=== PATIENT | female | born 1980 | race Caucasian/White ===

== ENCOUNTER 2017-01-14 17:09 | Emergency (ER) | payer MEDICAID ==
--- NOTE | 2017-01-14 19:04 | ERNOTE ---
ENT HPI Date of Service: 01/14/17 Presenting Symptoms: dental pain Time Seen by Provider: 01/14/17 19:03 Source: patient - Immun/Allergies/Home Medications Immunizations: IMMUNIZATION HX Immunizations Up to Date Yes History of Influenza Vaccine Yes Hx Pneumococcal Vaccination No Allergies/Adverse Reactions: Allergies Allergy/AdvReac Type Severity Reaction Status Date / Time No Known Allergies Allergy Verified 01/14/17 17:38 Home Medications: HOME MEDICATIONS Acetaminophen with Codeine [Tylenol with Codeine #3 Tablet] 1 - 2 tab PO Q6H PRN #10 tab 01/14/17 [Last Taken Unknown] Albuterol Sulfate [Ventolin Hfa] 8 gm IH PRN PRN 01/14/17 [Last Taken Unknown] Cyclobenzaprine HCl 10 mg PO PRN PRN 01/14/17 [Last Taken Unknown] Penicillin V Potassium [Pen-Vee K] 500 mg PO QID #40 tab 01/14/17 [Last Taken Unknown] Venlafaxine HCl [Venlafaxine HCl ER] 150 mg PO DAILY 01/14/17 [Last Taken Unknown] - History of Present Illness Narrative: RIGHT JAW PAIN STARTING LST NIGHT AND THINKS SHE HAS A TOOTH ABSCESS. states she called for a dental appt. but can not be seen for 2weeks. Review of Systems - Review of Systems Constitutional: Present: See HPI ENT: Present: other - tooth ache with right lower jaw swelling no trauma Respiratory: Present: no symptoms reported Cardiology: Present: no symptoms reported Gastrointestinal/Abdominal: Present: no symptoms reported Genitourinary: Present: no symptoms reported Musculoskeletal: Present: other - hx of psoriatic arthritis All Other Systems: All systems neg except as marked - Patient's Past Medical History Patient History - Medical: No pertinent hx, Other - HX OF PSORIATIC ARTHRITIS. Patient History - Cardiac/Respiratory: No pertinent hx Patient History - Cancer: No Hx of Cancer Patient History - Surgical Procedures: T & A, Other Patient History - Other: None LMP (females 10-50): last week - Social History Living Situations: parents Abuse History: No History of abuse Psych History: Hx of Anxiety Smoking Status: Current every day smoker Have you smoked in the past 12 months: Yes Do you dip or chew tobacco: No Alcohol Use: none Drug Use: none - Immunizations Immunizations Up to Date: Yes Hx Pneumococcal Vaccination: No History of Influenza Vaccine: Yes Physical Exam - Physical Exam General Appearance: Present: wd/wn, alert, mild distress Eye Exam: Normal inspection: bilateral Ears, Nose, Throat: Present: normal except -, other - SHE HAS MILD RIGHT LOWER MANDIBULAR SWELLING AND RED INFLAMED RIGHT POSTERIOR GUM SWELLLING WITH EXTREMELY CARIOUS TEETH THROUGH OUT BUT TENDER TO PALP. TOO RIGHT LOWER FIRST MOLAR WHIC IS ONLY ABOUT HALF PRESENT BECAUSE OF CARIES. THE BICUSPID JUST ANTERIOR IS GONE AND THE SECOND MOLAR POSTERIOR HAS LARGE FILLING WITH CARIES WELL. SHE ALSO HAS MILD CHELOSIS TO LEFT CORNER OF HER MOUTH. Neck: Present: normal inspection, nontender. Absent: lymphadenopathy (R), lymphadenopathy (L) ED Progress - Vital Signs Vital Signs: Vital Signs 01/14/17 17:34 Temperature 36.9 C Pulse Rate 112 H Respiratory 14 Rate Blood Pressure 156/98 O2 Sat by Pulse 97 Oximetry - Progress/Reassessment Chief Complaint: Dental Problem Departure Clinical Impression: Dental abscess, Angular cheilosis - Departure Disposition: Home Follow Up Needed Condition: Good Instructions: Dental Abscess, [id number] Additional Instructions: Go to the [facility]( we will give you written information) tomorrow for definitive treatment of your dental problem. Avoid hot or cold foods or drinks. Rinse vigorously with warm salt water for 10 mins at a time every 2-3 hours. Trial of ambusol or oil of cloves to the sore tooth. use the medication as directed. Referrals: Rj Red MD [Primary Care Provider] - Prescriptions: Acetaminophen with Codeine [Tylenol with Codeine #3 Tablet] 1 - 2 tab PO Q6H PRN #10 tab PRN Reason: Pain Penicillin V Potassium [Pen-Vee K] 500 mg PO QID #40 tab
[2017-01-14] MEDS ORDERED: KETOROLAC TROMETHAMINE 60 MG/2 ML VIAL IM ONE ×2 (19:13→19:14)
--- OUTSIDE RECORDS SUMMARY | 2017-01-14 19:30 | XMS REPORT | Continuity of Care Document ---
:1980 Author Organization [facility] ([facility]) Address [address] [place] [address] Phone [phone] Care Team Providers Name Role Phone Unavailable Primary Care Provider Unavailable Source Comments This disclosure is being made pursuant to the Care Everywhere program, applicable federal and state laws, and may not contain all informaitonavailable regarding this patient.[facility] ([facility]) Active Allergies and Adverse Reactions Not on File Current Medications Not on file Active Problems Not on file Social History Tobacco Use Types Packs/Day Years Used Date Never Assessed Plan of Care Health Maintenance Due Date Last Done Comments Hepatitis B Vaccine (1 of 3 - Primary Series) 1980 Tdap Vaccine 1991 Lipid Disorder Screening 1998 MMR Vaccine 1998 Td Vaccine 1998 Varicella Vaccine (1 of 2 - Adult - No Evidence of 1998 Immunity) Cervical Cancer Screening 2010 Influenza Vaccine: Seasonal (#1) 04/01/2016 Results from Last 3 Months Not on file
[2017-01-14 20:50] VITALS: BP 149/91
== END 2017-01-14 19:20 | disposition home or self-care (01) ==
LOC: ER 17:09
DX: K04.7 Periapical abscess without sinus (principal); K13.0 Diseases of lips; Z72.0 Tobacco use

== ENCOUNTER 2017-10-27 17:33 | Emergency (ER) | payer MEDICAID ==
[2017-10-27 17:48] VITALS: BP 150/90
[2017-10-27] MEDS ORDERED: IBUPROFEN 400 MG TABLET PO ONE (18:06)
[2017-10-27] MEDS ORDERED: ONDANSETRON 4 MG TAB.RAPDIS PO ONE (18:06)
[2017-10-27] MEDS ORDERED: IBUPROFEN 400 MG TABLET ONE (18:07)
[2017-10-27] MEDS ORDERED: ONDANSETRON 4 MG TAB.RAPDIS ONE (18:07)
--- NOTE | 2017-10-27 18:07 | ERNOTE ---
Medical Problem HPI - General Chief Complaint: Nausea/Vomiting Time Seen by Provider: 10/27/17 18:00 Source: patient Exam Limitations: no limitations - Immun/Allergies/Home Medications Immunizations: IMMUNIZATION HX Immunizations Up to Date Yes History of Influenza Vaccine Yes Hx Pneumococcal Vaccination No Allergies/Adverse Reactions: Allergies No Known Allergies Allergy (Verified 10/27/17 17:46) Home Medications: HOME MEDICATIONS Albuterol Sulfate [Ventolin Hfa] 8 gm IH PRN PRN 01/14/17 [Last Taken Unknown] Cyclobenzaprine HCl 10 mg PO PRN PRN 01/14/17 [Last Taken Unknown] Buspirone HCl 30 mg PO BID 10/27/17 [Last Taken Unknown] Clonidine HCl [Catapres] 0.1 mg PO BID 10/27/17 [Last Taken Unknown] Naproxen [Naprosyn] 500 mg PO BID #60 tablet 10/27/17 [Last Taken Unknown] Ondansetron [Zofran Odt] 4 mg PO Q6H PRN #10 tab 10/27/17 [Last Taken Unknown] - History of Present History Narrative: Patient presents with what she feels are intermittent low-grade fevers, however she also has nausea and body aches. Onset of the symptoms have been over the past 24 hours and she rates as mild to moderate severity. Timing: constant Severity: mild, moderate Review of Systems - Review of Systems Constitutional: Present: See HPI EYE: Present: no symptoms reported ENT: Present: nose congestion Respiratory: Present: no symptoms reported Cardiology: Present: no symptoms reported Gastrointestinal/Abdominal: Present: no symptoms reported Genitourinary: Present: no symptoms reported Musculoskeletal: Present: no symptoms reported Skin: Present: no symptoms reported Neurological: Present: no symptoms reported Endocrine: Present: no symptoms reported Hematologic/Lymphatic: Present: no symptoms reported Psych: Present: no symptoms reported - Patient's Past Medical History Patient History - Medical: No pertinent hx, Other Patient History - Cardiac/Respiratory: No pertinent hx Patient History - Cancer: No Hx of Cancer Patient History - Surgical Procedures: T & A, Other Patient History - Other: None - Social History Living Situations: home Abuse History: No History of abuse Psych History: Hx of Anxiety Alcohol Use: none Drug Use: none - Immunizations Immunizations Up to Date: Yes Hx Pneumococcal Vaccination: No History of Influenza Vaccine: Yes Physical Exam - Physical Exam General Appearance: Present: wd/wn, alert, moderate distress Head Exam: Present: normal inspection, no evidence of injury Eye Exam: Normal inspection: bilateral, PERRL: bilateral Ears, Nose, Throat: Present: nasal congestion, normal pharynx Neck: Present: normal inspection, nontender Respiratory: Present: no respiratory distress, normal breath sounds, no accessory muscle use, chest nontender, lungs clear Cardiovascular/Chest: Present: no murmur, normal peripheral pulses, tachycardia Gastrointestinal/Abdominal: Present: normal bowel sounds, nontender, nondistended, soft, no organomegaly Rectal Exam: Present: deferred Back Exam: Present: normal inspection, normal range of motion Extremity Exam: Present: normal inspection, non-tender, no edema, normal range of motion Neurological Exam: Present: alert, oriented, normal mood/affect Skin Exam: Present: normal color, warm/dry Lymphatic Exam: Present: no adenopathy ED Progress - Results and Orders Patient's Lab Results:: I have reviewed the patient's lab results. - Vital Signs Patient's Vital Signs:: I have reviewed the patient's vital signs. Vital Signs: Vital Signs 10/27/17 10/27/17 17:41 17:50 Temperature 36.9 C 36.9 C Pulse Rate 106 H 106 H Respiratory 12 12 Rate Blood Pressure 150/90 150/90 O2 Sat by Pulse 99 99 Oximetry - Progress/Reassessment Chief Complaint: Nausea/Vomiting Progress:: Improved Plan - Plan Plan: Patient refused the flu test. Patient's urinalysis is unremarkable and I'm suspecting given the patient's presenting symptomatology that she likely has a viral syndrome. She'll be started on Zofran for any nausea and Naprosyn for the body aches and she will follow up with her family physician as needed. Departure Clinical Impression: Viral syndrome - Departure Disposition: Home self-care Condition: Good Instructions: Nausea, Adult, [id number] Referrals: Rj Red MD [Primary Care Provider] - Prescriptions: Naproxen [Naprosyn] 500 mg PO BID #60 tablet Ondansetron [Zofran Odt] 4 mg PO Q6H PRN #10 tab PRN Reason: Nausea And Vomiting
[2017-10-27 18:10] LABS: Urine Bilirubin Negative (NEGATIVE); Urine Blood 250 /ul (NEGATIVE); Urine Ketone Negative (NEGATIVE); Urine Nitrite Negative (NEGATIVE); Urine Protein Negative (NEGATIVE); Urine Urobilinogen Normal (NORMAL)
[2017-10-27 18:29] LABS: Urine Appearance Clear; Urine Bacteria TRACE; Urine Color Yellow; Urine RBC 0-5 /hpf (0-5); Urine WBC 0-5 /hpf (0-5)
== END 2017-10-27 18:59 | disposition home or self-care (01) ==
LOC: ER 17:33
DX: B34.9 Viral infection, unspecified (principal); F41.9 Anxiety disorder, unspecified